=== PATIENT | male | born 1950 | race Caucasian/White ===

== ENCOUNTER → 2023-09-14 | Outpatient (CLI) | payer OTHER | END | disposition home or self-care (01) | LOC: RAH 13:51 | PROVIDERS: ATTEND Chiropractor | DX: I08.0 Rheumatic disorders of both mitral and aortic valves (principal); I11.9 Hypertensive heart disease without heart failure; I25.9 Chronic ischemic heart disease, unspecified | CPT/HCPCS: 93306 ==